=== PATIENT | female | born 1940 | race Caucasian/White ===

== ENCOUNTER 2018-04-30 07:52 | Day surgery (SDC) | payer MEDICARE, MEDICAID ==
[2018-04-30 08:26] VITALS: BMI 22.3
[2018-04-30] MEDS ORDERED: Propofol 10 mg/ml Inj (20 ML) ONE (10:03)
[2018-04-30] MEDS ORDERED: Sodium Chloride 0.9% 1,000 ML IV SCH (11:00)
[2018-04-30 11:22] VITALS: O2SAT 100
[2018-04-30 11:38] VITALS: RESP 16
[2018-04-30 11:50] VITALS: BP 107/63; PULSE 65; TEMP 98.2
== END 2018-04-30 12:21 | disposition home or self-care (01) ==
LOC: ENDO 07:52
PROVIDERS: ATTEND Specialist
DX: Z12.11 Encounter for screening for malignant neoplasm of colon (principal); K57.30 Diverticulosis of large intestine without perforation or abscess without bleeding; K64.8 Other hemorrhoids; E03.9 Hypothyroidism, unspecified; E11.9 Type 2 diabetes mellitus without complications; I10 Essential (primary) hypertension; K21.9 Gastro-esophageal reflux disease without esophagitis; Z86.010 Personal history of colon polyps; Z85.3 Personal history of malignant neoplasm of breast; Z87.442 Personal history of urinary calculi; Z90.49 Acquired absence of other specified parts of digestive tract; Z90.710 Acquired absence of both cervix and uterus; Z90.11 Acquired absence of right breast and nipple
CPT/HCPCS: 45378; 82948; J2001; J2704; J7030

== ENCOUNTER 2018-06-11 08:30 | Day surgery (SDC) | payer MEDICARE, MEDICAID | END 2018-06-11 11:33 | disposition home or self-care (01) | LOC: ENDO 08:30 | DX: K21.9 Gastro-esophageal reflux disease without esophagitis (principal); D50.9 Iron deficiency anemia, unspecified; K31.9 Disease of stomach and duodenum, unspecified; K44.9 Diaphragmatic hernia without obstruction or gangrene ==

== ENCOUNTER 2018-08-05 09:33 | Outpatient (CLI) | payer MEDICARE, MEDICAID | END 2018-08-05 09:34 | disposition home or self-care (01) | LOC: RAD 09:33 ==